=== PATIENT | female | born 1985 ===

== ENCOUNTER 2023-01-19 10:39 | Outpatient (CLI) | payer OTHER ==
[~2023-01-19 10:39] MED LIST: ORTHO DF 3,7751 EACH PO; PRENATAL TABLE1 EAC1 PO
== END 2023-01-19 12:23 | disposition home or self-care (01) ==
LOC: PRENATAL 10:39
PROVIDERS: ATTEND Obstetrics & Gynecology Maternal & Fetal Medicine
DX: O26.849 Uterine size-date discrepancy, unspecified trimester (principal); O09.529 Supervision of elderly multigravida, unspecified trimester; O34.219 Maternal care for unspecified type scar from previous cesarean delivery; O26.879 Cervical shortening, unspecified trimester

== ENCOUNTER 2023-03-04 11:15 | Outpatient (CLI) | payer OTHER | END 2023-03-04 11:16 | disposition home or self-care (01) | LOC: PRENATAL 11:15 | PROVIDERS: ATTEND Obstetrics & Gynecology Maternal & Fetal Medicine | DX: O26.849 Uterine size-date discrepancy, unspecified trimester (principal); O36.8199 Decreased fetal movements, unspecified trimester, other fetus; O09.529 Supervision of elderly multigravida, unspecified trimester; O34.219 Maternal care for unspecified type scar from previous cesarean delivery; Z3A.34 34 weeks gestation of pregnancy ==

== ENCOUNTER 2023-04-03 11:04 | Inpatient (IN) | payer OTHER ==
[~2023-04-03] VITALS: Ht 165.1 cm; Wt 3.2 kg
[2023-04-03 09:42] LABS: HEMATOCRIT 39.3 % (36.0-45.00); HEMOGLOBIN 13.3 g/dL (12.0-15.00); MEAN CELL VOLUME 90.9 fL (80.00-100.00); MEAN CORPUSCULAR HEMOGLOBIN 30.9 pg (27.00-32.0); PLATELET COUNT 248 K/uL (150-450); RED BLOOD COUNT 4.32 M/uL (4.00-6.00); RED CELL DISTRIBUTION WIDTH 15.6 % (11.5-14.5)
[2023-04-03 09:45] LABS: URINE APPEARANCE Clear; URINE BILIRRUBIN Negative (NEGATIVE); URINE BLOOD Negative; URINE COLOR Yellow; URINE GLUCOSE Negative (NEGATIVE); URINE LEUKOCYTE Negative; URINE NITRATE Negative; URINE PROTEIN Trace (NEGATIVE)
[2023-04-03 09:46] LABS: URINE BACTERIA 110.8 uL (0.0-1933); URINE RBC 3.5 uL (0.0-20.8); URINE WBC 4.4 uL (0.0-23.2)
[2023-04-03 10:12] LABS: INR 0.98; PARTIAL THROMBOPLASTIN TIME 26.5 SECONDS (22.0-34.0); PROTHROMBIN TIME 10.3 SECONDS (9.0-11.5)
[2023-04-06 21:00] LABS: HEMATOCRIT 38.1 % (36.0-45.00); HEMOGLOBIN 12.8 g/dL (12.0-15.00); MEAN CELL VOLUME 92.2 fL (80.00-100.00); MEAN CORPUSCULAR HEMOGLOBIN 30.9 pg (27.00-32.0); MEAN CORPUSCULAR HGB CONC 33.5 g/dl (32.0-36.0); PLATELET COUNT 228 K/uL (150-450); RED BLOOD COUNT 4.13 M/uL (4.00-6.00); RED CELL DISTRIBUTION WIDTH 15.6 % (11.5-14.5)
[2023-04-06 22:51] LABS: ABG PH 7.351 (7.35-7.45); ABG PO2 33.3 mmHg (80-100); ABG pCO2 38.5 mmHg (35-45); BASE EXCESS -4.3 mmol/l; BICARBONATE 20.8 mmol/l (23-25); SaO2 59.5 %
[2023-04-06 22:52] LABS: o2 21 %
== END 2023-04-09 14:50 | disposition home or self-care (01) | DRG 788 ==
LOC: LDR 04-06 12:22 → OB/GYN 04-06 12:22 → O/R 04-06 13:45 → OB/GYN 04-06 15:28
PROVIDERS: ADMIT Obstetrics & Gynecology; ATTEND Obstetrics & Gynecology
PROC: 4A1HXCZ Monitoring of Products of Conception, Cardiac Rate, External Approach (ICD-10-PCS; 2023-04-06)
PROC: 10D00Z1 Extraction of Products of Conception, Low, Open Approach (ICD-10-PCS; principal; 2023-04-06 12:15)
DX: O34.211 Maternal care for low transverse scar from previous cesarean delivery (principal); O36.5930 Maternal care for other known or suspected poor fetal growth, third trimester, not applicable or unspecified; Z3A.38 38 weeks gestation of pregnancy; Z37.0 Single live birth; Z20.822 Contact with and (suspected) exposure to COVID-19